=== PATIENT | female | born 1990 | race Two or more races ===

== ENCOUNTER → 2020-04-14 08:16 | Outpatient (BNVA) | payer OTHER, SELFPAY | PROVIDERS: PCP Hospitalist; Referring Provider Hospitalist; Visit Provider Surgery | DX: E66.01 Morbid (severe) obesity due to excess calories (principal); J45.909 Unspecified asthma, uncomplicated; G47.30 Sleep apnea, unspecified; Z68.42 Body mass index [BMI] 45.0-49.9, adult; Z88.6 Allergy status to analgesic agent; Z79.899 Other long term (current) drug therapy | CPT/HCPCS: 99202 ==

== ENCOUNTER 2020-04-21 08:43 | Outpatient (REF) | payer OTHER, SELFPAY ==
--- NOTE | 2020-04-21 09:44 | ECG_ITS ---
Test Reason : UNSPEC ASTHMA, PREOP Blood Pressure : / mmHG Vent. Rate : 071 BPM Atrial Rate : 071 BPM P-R Int : 164 ms QRS Dur : 104 ms QT Int : 396 ms P-R-T Axes : 048 -02 018 degrees QTc Int : 430 ms Normal sinus rhythm with sinus arrhythmia Incomplete right bundle branch block Borderline ECG No previous ECGs available Referred By: Joseph Geiger Electronically Signed By:YVROSE ALMANZA MD
--- NOTE | 2020-04-21 10:12 | XR_ITS ---
EXAMINATION: XR CHEST CLINICAL INFORMATION: Asthma COMPARISON: None TECHNIQUE: 2 views of the chest were obtained. FINDINGS: No significant abnormality is noted involving the heart, lungs, mediastinum, bony thorax or soft tissues. XR/XR chest 2V IMPRESSION: Unremarkable chest examination.
[2020-04-21 10:22] LABS: MANUAL DIFF FLAG NO
[2020-04-21 10:30] LABS: Basophils Absolute Auto 0.1 X10*3/uL (0.0-0.2); Basophils Percent Auto 0.5 % (0-2); Eosinophils Absolute Auto 0.2 X10*3/uL (0.0-0.4); Eosinophils Percent Auto 2.3 % (0-4); Hematocrit 38.5 % (37-47); Hemoglobin 13.1 g/dl (12.0-16.0); Imm Gran Abs Auto 0.04 X10*3/uL (0.00-0.03); Imm Gran Pct Auto 0.4 % (0.0-0.4); Lymphocytes Absolute Auto 3.4 X10*3/uL (1.2-4.9); Lymphocytes Percent Auto 36.4 % (20-40); Mean Corpuscular Hemoglobin 28.9 pg (27.0-33.0); Mean Corpuscular Volume 84.8 fL (80-98); Mean Platelet Volume 9.3 fL (9.4-12.3); Monocytes Absolute Auto 0.5 X10*3/uL (0.1-1.2); Monocytes Percent Auto 5.2 % (2-11); Neutrophils Absolute Auto 5.1 X10*3/uL (2.0-8.3); Neutrophils Percent Auto 55.2 % (45-73); Platelet Count 280 X10*3/uL (160-400); Red Blood Count 4.54 X10*6/uL (4.20-5.50); Red Cell Distribution Width 12.2 % (11.0-16.0); White Blood Count 9.2 X10*3/uL (4.8-10.8)
[2020-04-21 11:09] LABS: Alanine Aminotransferase 29 U/L (0-31); Albumin Level 4.2 g/dL (3.5-5.0); Alkaline Phosphatase 64 U/L (39-117); Anion Gap 12 (12-20); Aspartate Amino Transferase 18 U/L (5-31); Bilirubin Total 0.3 mg/dL (0.0-1.0); Blood Urea Nitrogen 12 mg/dL (9-16); C Reactive Protein 0.35 mg/dL (< or = 0.50); Calcium 8.3 mg/dL (8.4-10.2); Carbon Dioxide 24 mmol/L (22-29); Chloride 106 mmol/L (96-108); Cholesterol 173 mg/dL; Estimated Glomerular Filt Rate > 60; Glucose Random 94 mg/dL (60-115); HDL Cholesterol 39 mg/dL; LDL Cholesterol Calculated 107 mg/dl; Potassium 4.1 mmol/l (3.3-5.1); Sodium 138 mmol/L (135-145); Total Protein 6.8 g/dL (6.5-8.0); Triglycerides 135 mg/dL
[2020-04-21 11:11] LABS: Estimated Average Glucose 97 mg/dL
[2020-04-21 11:33] LABS: Ferritin 105 ng/mL (10-122); TSH reflex Free T4 0.85 mIU/mL (0.32-4.0)
[2020-04-21 11:47] LABS: Vitamin B12 202 pg/mL (200-900)
[2020-04-22 12:01] LABS: H Pylori Breath Test NOT DETECTED (NOT DETECTED)
[2020-04-24 12:17] LABS: Insulin Level Total 37.6 uIU/mL
[2020-04-24 18:32] LABS: Zinc 96 mcg/dL (60-130)
[2020-04-26 18:56] LABS: Vitamin A 44 mcg/dL (38-98)
[2020-04-27 14:41] LABS: Vitamin B1 12 nmol/L (8-30)
== END 2020-04-21 08:44 | disposition home or self-care (01) ==
LOC: HO.LAB 08:43
PROVIDERS: Surgery; PCP Hospitalist; Visit Provider Physician Assistant
DX: Z01.818 Encounter for other preprocedural examination (principal); J45.909 Unspecified asthma, uncomplicated; Z11.0 Encounter for screening for intestinal infectious diseases
CPT/HCPCS: 36415; 71046; 80053; 80061; 82607; 82728; 82746; 83013; 83036; 83525; 84425; 84443; 84590; 84630; 85025; 86140; 93005; 99211

== ENCOUNTER 2020-04-25 08:28 | Outpatient (REF) | payer OTHER, SELFPAY ==
--- NOTE | 2020-04-25 08:32 | FL_ITS ---
EXAMINATION: XR GI SERIES CLINICAL INFORMATION: Preop thereafter surgery COMPARISON: None TECHNIQUE: Upper GI was performed using thin and thick barium and effervescent granules. FINDINGS: Esophageal motility is normal. There is mild gastroesophageal reflux. No hernia is seen. The stomach and duodenum are normal-appearing. No fold thickening, mass, ulcer or stricture is seen. FLUOROSCOPY TIME: 0.7 minutes DOSE AREA PRODUCT: 9.5 beckman per centimeter squared. Total dose 35 mgy. 27 saved fluoroscopic images. FL/FL upper GI series IMPRESSION: Mild gastroesophageal reflux otherwise unremarkable exam.
--- NOTE | 2020-04-25 08:32 | US_ITS ---
EXAMINATION: US COMPLETE ABDOMEN WITH LIVER ELASTOGRAPHY CLINICAL INFORMATION: Fatty liver. Unspecified asthma COMPARISON: None. TECHNIQUE: Real-time imaging of the abdominal viscera. Noninvasive ultrasound liver fibrosis assessment is performed using Kike ElastPQ point quantification shear wave elastography (pSWE) with a 5 MHz transducer. Multiple elastography samples are obtained. FINDINGS: PANCREAS: Normal. The visualized pancreatic head and body are normal in appearance. The remainder of the pancreas is obscured from visualization by the overlying bowel gas. ABDOMINAL AORTA: The proximal, middle, and distal aortic segments are normal in caliber. INFERIOR VENA CAVA: Visualized portions are normal. LIVER: The liver demonstrates normal size and contour. No focal lesion or intrahepatic biliary duct dilatation. The right lobe is prominent to mildly enlarged, measuring 19.2 cm in length. The left lobe measures 12.2 cm in length. Flow in the main portal vein is hepatopetal. There is diffusely increased hepatic echogenicity and sound attenuation consistent with diffuse hepatic steatosis. Shear wave elastography provides a median stiffness of 1.35 m/s (reference: normal median stiffness is 0.81 - 1.22 m/s). The IQR/median stiffness to assess sampling precision is 0.22 (reference: optimal IQR/median stiffness is under 0.3). GALLBLADDER: Echogenic, shadowing gallstones are present. No gallbladder wall thickening or pericholecystic fluid. No reported sonographic Shah's sign. COMMON BILE DUCT: Normal in caliber measuring 0.4 cm in diameter. RIGHT KIDNEY: Normal. No hydronephrosis. No renal calculi or focal parenchymal lesions. The kidney measures 12.3 cm in maximum dimension. LEFT KIDNEY: Normal. No hydronephrosis. No renal calculi or focal parenchymal lesions. The kidney measures 10.7 cm in maximum dimension. SPLEEN: Normal. The spleen measures 10.4 cm in maximum dimension. FREE FLUID: None. US/US abdomen comp w elastography IMPRESSION: 1. Mild diffuse hepatic steatosis. Cholelithiasis. The right lobe of the liver is prominent to mildly enlarged, measuring up to 19.2 cm. 2. Elastography: Liver elastography measurements are consistent with a minimal risk for clinically significant liver fibrosis (METAVIR Stage F0-F1).
== END 2020-04-25 08:29 | disposition home or self-care (01) ==
LOC: HO.US 08:28
PROVIDERS: PCP Hospitalist; Visit Provider Surgery
DX: Z01.818 Encounter for other preprocedural examination (principal); E66.9 Obesity, unspecified; K21.9 Gastro-esophageal reflux disease without esophagitis; J45.909 Unspecified asthma, uncomplicated
CPT/HCPCS: 74240; 76705; 76981

== ENCOUNTER → 2020-04-28 08:20 | Outpatient (BNVA) | payer OTHER, SELFPAY | PROVIDERS: PCP Hospitalist; Referring Provider Hospitalist; Visit Provider Dietitian, Registered | DX: Z76.89 Persons encountering health services in other specified circumstances (principal) ==

== ENCOUNTER → 2020-05-05 07:57 | Outpatient (BNVA) | payer OTHER, SELFPAY | PROVIDERS: PCP Hospitalist; Visit Provider Surgery | DX: Z76.89 Persons encountering health services in other specified circumstances (principal) ==

== ENCOUNTER → 2020-05-15 07:00 | Outpatient (REF) | payer OTHER, SELFPAY ==
--- NOTE | 2020-05-15 07:06 | CA_ITS ---
Transthoracic Echocardiogram Patient (Last, First, Middle): Purnima Swenson J Gender: Female Date of : 1990 Age: 29 Procedure Date: 05/15/2020 Procedure Type: Transthoracic Echocardiogram Location: OP Height: 162.56 cm Weight: 116.58 kg BSA: 2.18 m2 Heart Rate: bpm BP: 128 / 70 mmHg Locomotive Engineer: Referring MD: Joseph Geiger MD Agronomy Manager: Alvaro Sawyer MD Symptoms: I10 HTN, DYSPNEA ON EXERTION,Z01.818 PRE OP Study Quality: Good ECG Rhythm: Sinus Conclusions: - Essentially normal study Findings Left Ventricle Normal left ventricular size, thickness, and systolic function. The visually estimated ejection fraction is between 60-65%. There is no evidence of regional wall motion abnormalities. Diastolic function is normal for age. Right Ventricle Normal right ventricular cavity size and systolic function. Atria Both atria are normal in size. There is an interatrial septal aneurysm seen bowing to the right. There is a mobile atrial septum noted. Interatrial shunt cannot be excluded. Aortic Valve Normal aortic valve structure and function. There is no aortic valve stenosis. There is no aortic valve regurgitation. Mitral Valve Normal mitral valve structure and function. There is trace mitral valve regurgitation. There is no mitral valve stenosis. Pulmonic Valve The pulmonic valve is likely normal. There is trace pulmonic valve regurgitation. Tricuspid Valve Normal tricuspid valve structure. There is trace tricuspid valve regurgitation. The right ventricular systolic pressure is normal. The right ventricular systolic pressure is 20 mmHg. Normal right atrial pressure. There is no evidence of pulmonary hypertension. Great Vessels All visible segments of the aorta are normal in size. The pulmonary artery was not well visualized. Venous The inferior vena cava is normal in size and collapses greater than 50% with inspiration. Pericardium/Pleural There is no evidence of pericardial effusion. Prior Study Comparison No prior study available for comparison. Recommendations, Care & Conclusions Recommend contrast study to evaluate intracardiac shunting. Measurements 2D Linear Measurements IVSd: 0.99 0.6-0.9/0.6-1.0 cm LVIDd: 4.65 3.9-5.3/4.2-5.9 cm LVIDd Index: 2.13 2.4-3.2/2.2-3.1 cm/m2 LVIDs: 2.74 2.0-3.6 cm LVPWd: 0.97 0.7-1.1 cm Ao Root: 3.00 2.1-3.5 cm LA Diam: 4.10 2.7-3.8/3.0-4.0 cm LAIDs Index: 1.88 1.5-2.3 cm/m2 LV Mass: 195.65 67-162/88-224 g LV Mass Index: 89.75 43-95/49-115 g/m2 LVOT Diam: 2.00 3.0+(-)1.3 cm 2D Systolic Function EF 4C: 60.70 >55% EF 2C: 54.40 >55% EF BiP: 59.80 >55% Mitral Valve MV Pk E: 0.76 MV PK A: 0.60 MV Decel Time: 144.00 E/A: 1.30 E'Lateral: 12.10 E'Medial: 10.20 E/E' Med: 7.50 E/E' Lat: 6.30 PHT: 42.00 MVA PHT: 5.24 Decel Florence: 5.28 Aortic Valve AoV Pk Favian: 1.32 AoV Mn Favian: 0.90 AoV VTI: 0.32 AoV Pk Grad: 7.00 Aov Mn Grad: 4.00 SWATI Cont.VTI: 2.28 LVOT LVOT Pk Favian: 1.09 LVOT Mn Favian: 0.72 LVOT VTI: 0.23 LVOT Pk Grad: 5.00 LVOT Mn Grad: 2.00 LVOT Diam: 2.00 LVOT Area: 3.14 Diastolic Function MV Pk E: 0.76 MV Pk A: 0.60 E/A: 1.30 E'Medial: 10.20 E/E' Med: 7.50 E' Laterial: 12.10 E/E' Lat: 6.30 Tricuspid Valve TR Pk Favian: 2.09 TR Pk Grad: 17.00 RA Press: 3.00 RVSP: 20.00 Great Vessels Aorta Ao Root-2D: 3.00 2.0-3.7 cm Ao Asc: 2.80 2.1-3.4 cm Pulmonary Valve PV Pk Favian: 1.00 Peak PV Grad: 4.00 Updated in Other Vendor System with Status of Final Alvaro Sawyer MD electronically signed on 05/16/2020 5:52:20 PM with status of Final
== END ==
LOC: HO.CARD 07:00
PROVIDERS: Visit Provider Surgery
DX: Z01.818 Encounter for other preprocedural examination (principal); I10 Essential (primary) hypertension
CPT/HCPCS: 93306

== ENCOUNTER → 2020-05-19 08:02 | Outpatient (BNVA) | payer OTHER, SELFPAY | PROVIDERS: PCP Hospitalist; Referring Provider Hospitalist; Visit Provider Dietitian, Registered | DX: Z76.89 Persons encountering health services in other specified circumstances (principal) ==

== ENCOUNTER → 2020-05-24 08:13 | Outpatient (BNVA) | payer OTHER, SELFPAY | PROVIDERS: Visit Provider Dietitian, Registered | DX: Z76.89 Persons encountering health services in other specified circumstances (principal) ==

== ENCOUNTER → 2020-05-31 07:53 | Outpatient (BNVA) | payer OTHER, SELFPAY | PROVIDERS: Visit Provider Surgery | DX: Z76.89 Persons encountering health services in other specified circumstances (principal) ==

== ENCOUNTER → 2020-06-28 08:20 | Outpatient (BNVA) | payer OTHER, SELFPAY | PROVIDERS: Visit Provider Surgery | DX: Z76.89 Persons encountering health services in other specified circumstances (principal) ==

== ENCOUNTER → 2020-07-21 08:15 | Outpatient (BNVA) | payer OTHER, SELFPAY | PROVIDERS: Visit Provider Surgery ==

== ENCOUNTER → 2020-08-21 16:12 | Outpatient (BNVA) | payer OTHER, SELFPAY | PROVIDERS: PCP Hospitalist; Visit Provider Physician Assistant ==

== ENCOUNTER → 2020-08-25 13:48 | Outpatient (BNVA) | payer OTHER, SELFPAY | PROVIDERS: PCP Hospitalist; Visit Provider Physician Assistant ==

== ENCOUNTER → 2020-08-28 08:34 | Outpatient (BNVA) | payer OTHER, SELFPAY | PROVIDERS: PCP Hospitalist; Visit Provider Surgery ==

== ENCOUNTER 2020-09-05 05:44 | Inpatient (IN) | payer OTHER, SELFPAY ==
[2020-08-30 11:45] VITALS: BMI 41.3
[2020-08-31 08:43] LABS: MANUAL DIFF FLAG NO
[2020-08-31 09:05] LABS: Basophils Percent Auto 0.5 % (0-2); Eosinophils Absolute Auto 0.1 X10*3/uL (0.0-0.4); Eosinophils Percent Auto 1.7 % (0-4); Hematocrit 40.1 % (37-47); Hemoglobin 13.6 g/dl (12.0-16.0); Imm Gran Abs Auto 0.02 X10*3/uL (0.00-0.03); Imm Gran Pct Auto 0.3 % (0.0-0.4); Lymphocytes Absolute Auto 2.8 X10*3/uL (1.2-4.9); Lymphocytes Percent Auto 35.9 % (20-40); Mean Corpuscular HGB Conc 33.9 g/dl (31.0-35.0); Mean Corpuscular Hemoglobin 28.5 pg (27.0-33.0); Mean Corpuscular Volume 83.9 fL (80-98); Mean Platelet Volume 10.1 fL (9.4-12.3); Monocytes Absolute Auto 0.5 X10*3/uL (0.1-1.2); Monocytes Percent Auto 6.2 % (2-11); Neutrophils Absolute Auto 4.3 X10*3/uL (2.0-8.3); Neutrophils Percent Auto 55.4 % (45-73); Platelet Count 257 X10*3/uL (160-400); Red Blood Count 4.78 X10*6/uL (4.20-5.50); Red Cell Distribution Width 12.2 % (11.0-16.0); White Blood Count 7.8 X10*3/uL (4.8-10.8)
[2020-08-31 09:12] LABS: INTERNATIONAL NORM RATIO 1.1 (0.9-1.1); Prothrombin Time 12.9 SEC (10.8-13.0)
[2020-08-31 09:24] LABS: Estimated Average Glucose 91 mg/dL; Hemoglobin A1c % 4.8 %
[2020-08-31 09:51] LABS: Alanine Aminotransferase 29 U/L (0-31); Albumin Level 4.3 g/dL (3.5-5.0); Alkaline Phosphatase 55 U/L (39-117); Anion Gap 11 (12-20); Aspartate Amino Transferase 23 U/L (5-31); Bilirubin Total 0.8 mg/dL (0.0-1.0); Blood Urea Nitrogen 12 mg/dL (9-16); C Reactive Protein 0.12 mg/dL (< or = 0.50); Calcium 8.8 mg/dL (8.4-10.2); Carbon Dioxide 25 mmol/L (22-29); Chloride 106 mmol/L (96-108); Cholesterol 151 mg/dL; Estimated Glomerular Filt Rate > 60; Glucose Random 93 mg/dL (60-115); HDL Cholesterol 33 mg/dL; LDL Cholesterol Calculated 96 mg/dl; Potassium 3.9 mmol/L (3.3-5.1); Sodium 138 mmol/L (135-145); Total Protein 6.9 g/dL (6.5-8.0); Triglycerides 113 mg/dL
[2020-08-31 10:15] LABS: TSH reflex Free T4 0.92 uIU/mL (0.32-4.0)
--- NOTE | 2020-09-04 09:09 | HO.ANESPROP2 ---
Documented by User: Lucila Robles 09/04/20 09:10 HPI - Anesthesia Eval Consult details Narrative: 29yo F for Gastrectomy Sleeve PMFSH Active Problems Active Problems: All Active Problems (Updated 08/30/20 @ 11:39 by Angelina Schmidt) Encounter for pre-operative examination (Acute) Abnormal EKG (Acute) Constipation (Acute) GERD (gastroesophageal reflux disease) (Acute) Anxiety (Acute) Depression (Acute) Asthma (Acute) Sleep apnea (Acute) Morbid obesity (Acute) Past Medical History Medical History Anxiety Asthma Depression GERD (gastroesophageal reflux disease) Knee pain Morbid obesity JEAN-PAUL on CPAP Sleep apnea Family History Family History Mother Hypertension Father No problems noted. Brother No problems noted. Brother No problems noted. Brother No problems noted. Sister No problems noted. Surgical History Surgical History Hx of breast reduction, elective Social History Social History Are you a primary child care giver to a significant other at home: No Do you presently have visiting nurse or other home services: No Alcohol intake: former Smoking Status: Never smoker Use of substances other than those prescribed or required for medical reasons: No Have you been hit, kicked, punched, or otherwise hurt by someone within the past year? If so, by whom?: No Advance Directives: No Advance Directives Information Provided: No Advance Directives on File: No Recently lost weight without trying: No Meds Allergies Allergy/AdvReac Type Severity Reaction Status Date / Time oxycodone [From Percocet] Allergy Severe Anaphylaxis Verified 08/30/20 11:40 Home Medications Medication Instructions Recorded Confirmed Last Taken Type albuterol sulfate 90 mcg/actuation 2 puff INHALATION Q6H PRN 04/14/20 08/30/20 Unknown History aerosol inhaler sertraline 25 mg tablet 25 mg PO DAILY 04/14/20 08/30/20 08/29/20 History Exam Exam Date and Time: September 04, 2020 0909 Height,Weight and Vital Signs: Height 5 ft 4 in Weight 109.316 kg Pertinent Lab Results Pertinent Lab Results: Laboratory Tests 08/31/20 08/31/20 08/31/20 08:05 08:05 08:05 WBC 7.8 RBC 4.78 Hgb 13.6 Hct 40.1 MCV 83.9 MCH 28.5 MCHC 33.9 RDW 12.2 Plt Count 257 MPV 10.1 Immature Gran % (Auto) 0.3 Neut % (Auto) 55.4 Lymph % (Auto) 35.9 Hopkins % (Auto) 6.2 Eos % (Auto) 1.7 Baso % (Auto) 0.5 Lymph # (Auto) 2.8 Hopkins # (Auto) 0.5 Eos # (Auto) 0.1 Baso # (Auto) 0.0 Abs Immat Gran (auto) 0.02 Absolute Neuts (auto) 4.3 Absolute Nucleated RBC 0.000 Nucleated RBC % (auto) 0.0 PT 12.9 INR 1.1 APTT 39.0 H Sodium 138 Potassium 3.9 Chloride 106 Carbon Dioxide 25 Anion Gap 11 L BUN 12 Creatinine 0.66 Estim Creat Clear Calc 152.0 Estimated GFR > 60 Random Glucose 93 Estimat Average Glucose Hemoglobin A1c % Calcium 8.8 D Total Bilirubin 0.8 AST 23 ALT 29 Alkaline Phosphatase 55 C-Reactive Protein 0.12 Total Protein 6.9 Albumin 4.3 Triglycerides 113 Cholesterol 151 LDL Cholesterol, Calc 96 HDL Cholesterol 33 TSH 0.92 Blood Type Antibody Screen 08/31/20 08/31/20 08:05 08:05 WBC RBC Hgb Hct MCV MCH MCHC RDW Plt Count MPV Immature Gran % (Auto) Neut % (Auto) Lymph % (Auto) Hopkins % (Auto) Eos % (Auto) Baso % (Auto) Lymph # (Auto) Hopkins # (Auto) Eos # (Auto) Baso # (Auto) Abs Immat Gran (auto) Absolute Neuts (auto) Absolute Nucleated RBC Nucleated RBC % (auto) PT INR APTT Sodium Potassium Chloride Carbon Dioxide Anion Gap BUN Creatinine Estim Creat Clear Calc Estimated GFR Random Glucose Estimat Average Glucose 91 Hemoglobin A1c % 4.8 Calcium Total Bilirubin AST ALT Alkaline Phosphatase C-Reactive Protein Total Protein Albumin Triglycerides Cholesterol LDL Cholesterol, Calc HDL Cholesterol TSH Blood Type O Positive Antibody Screen NEGATIVE Narrative Narrative: EKG 04/2020 Normal sinus rhythm with sinus arrhythmia Incomplete right bundle branch block Borderline ECG No previous ECGs available Echo 04/2020 Conclusions: - Essentially normal study Assessment and Plan Assessment Anesthesia Assessment: Chart Reviewed Documented by User: Silver Dickerson 09/05/20 07:03 PMFSH Past Medical History Medical History Anxiety Asthma Depression GERD (gastroesophageal reflux disease) Knee pain Morbid obesity JEAN-PAUL on CPAP Sleep apnea Family History Family History Mother Hypertension Father No problems noted. Brother No problems noted. Brother No problems noted. Brother No problems noted. Sister No problems noted. Surgical History Surgical History Hx of breast reduction, elective Social History Social History Are you a primary child care giver to a significant other at home: No Do you presently have visiting nurse or other home services: No Alcohol intake: former Smoking Status: Never smoker Use of substances other than those prescribed or required for medical reasons: No Have you been hit, kicked, punched, or otherwise hurt by someone within the past year? If so, by whom?: No Advance Directives: No Advance Directives Information Provided: No Advance Directives on File: No Recently lost weight without trying: No Meds Allergies Allergy/AdvReac Type Severity Reaction Status Date / Time oxycodone [From Percocet] Allergy Severe Anaphylaxis Verified 08/30/20 11:40 Home Medications Medication Instructions Recorded Confirmed Last Taken Type albuterol sulfate 90 mcg/actuation 2 puff INHALATION Q6H PRN 04/14/20 08/30/20 Unknown History aerosol inhaler sertraline 25 mg tablet 25 mg PO DAILY 04/14/20 08/30/20 08/29/20 History Exam Airway Mallampati Class: III TM Dist: >3cm Neck ROM: Full Loose/Missing/Broken Teeth: No Heart: rrr+[id number] Lungs: cta b/l Assessment and Plan Assessment Anesthesia Assessment: Anesthesia Plan Discussed, PAT Visit and Chart Reviewed Final Anesthetic Review NPO: Yes ASA Class: II Final Preanesthetic Review: No Changes in Pt Med Stat, Meds/Allgs Chart Reviewed, Consent Obtained/Reviewed and Anes Risks/Benef Reviewed Patient Risk: Intermediate Procedure Risk: Low Assessment/Block/Sedation in SS: Assess/Block/Sedation-SS Anesthetic Plan Anesthetic Plan: GA and Agree w/ Assess. and Plan Disposition: Standard PACU
--- NOTE | 2020-09-04 19:22 | MHC.SHP ---
Pre-Procedural Eval Section A The patient is an INPATIENT: Yes The History & Physical has been completed within 30 days and I have reviewed it.: No Section B Chief Complaint: obesity Details of Present Illness: Morbid obesity and cholelithiasis Relevant Family History (Specify if Yes): No Relevant Social History: None Present Medications: None Medical History: No relevant PMH History of Previous Operations: No relevant previous surgery Allergies: Allergies Allergy/AdvReac Type Severity Reaction Status Date / Time oxycodone [From Percocet] Allergy Severe Anaphylaxis Verified 08/30/20 11:40 Review of Systems Sugical H&P ROS: Negative: Constitution, Cardiovascular, Respiratory, Neurological, Psychiatric, Hem-Onc, Allergic/Immunologic, Gastrointestinal, Genitourinary, Musculoskeletal, Integumentary, Endocrine and Eyes/Ears/Nose/Throat Exam Surgical H&P Exam: Normal: HEENT, Normal: Heart, Normal: Lungs, Normal: Extremities, Normal: Abdomen, Normal: Skin and Normal: Neurological Plan Diagnosis/Plan: Unchanged (A cholecystectomy will be performed for symptomatic cholelithiasis) I have reviewed the history and physical and performed a pertinent physical examination on my patient. No changes have occurred unless specified.
[2020-09-04 21:42] LABS: Insulin Level Total 13.9 uIU/mL
[2020-09-05] VITALS (14 sets, daily range): BP systolic 106–166; BP diastolic 64–97; PULSE 83–98; RESP 14–18; TEMP 36.2–37.2; O2SAT 94–98
[2020-09-05 06:36] LABS: COVID-19 Test Negative (Negative); IDNOW Serial# 9DD0AD1C
[2020-09-05 06:37] LABS: Urine Pregnancy NEGATIVE (NEGATIVE)
[2020-09-05 06:38] LABS: UPreg QC Valid YES
[2020-09-05] MEDS: Lactated Ringers 1,000 ML 100 ML IVCONT (07:08)
[2020-09-05] MEDS: Lactated Ringers 1,000 ML 999 ML IV (07:08)
--- NOTE | 2020-09-05 10:53 | P.BOP_ITS ---
Brief Operative Note Date of Service: 09/05/20 Pre-op diagnosis: Morbid obesity, cholilithiasis, biliary colic and other comorbidities (see below) Post-op diagnosis: same Procedure: INITIAL PATIENT BMI ON PRESENTATION AT OUR OFFICE: 45.3 kg/m2 LAST BMI BEFORE SURGERY: 41.4 kg/m2 COMORBIDITIES: symptomatic cholelithiasis, sleep apnea, asthma, depression, anxiety, GERD liver steatosis, RBBB The patient participated in an intensive weekly lifestyle intervention and exercise program during which the patient has lost between the initial office visit and the last preoperative visit 24.6 lbs, or 10.2% of initial actual body weight. The patient met the BMI-criteria for bariatric surgery based on the BMI on initial presentation. The patient should not be penalized for achieving such weight loss because it is not sustainable long-term without surgical intervention and it was achieved in preparation for bariatric surgery under my direction and based on my published research ([email or web address] and [email or web address]/pdf) that a 10% preoperative weight loss improves long-term weight loss after surgery and reduces perioperative complications. Insurance carriers such as [facility] have endorsed my recommendations and have included in their policies criteria to include a 10% preoperative weight loss requirement. During the preoperative workup, the patient was found to have cholelithiasis which appears to be symptomatic. I recommended cholecystectomy in conjunction with the sleeve gastrectomy. Risks and complications of the surgery were discussed with the patient in advance, particularly the postoperative bleeding, infection, DVT or PE, bile leak, major bile duct injury that may require additional surgical intervention, cardiac, pulmonary or renal complications among others. The patient understood the risks and was in agreement with the plan. PROCEDURE: Esophago-gastroscopy, laparoscopic cholecystectomy, laparoscopic lysis of adhesions, laparoscopic sleeve gastrectomy and laparoscopic gastropexy INDICATIONS: This is a 29 year-old female who was electively scheduled for laparoscopic, possibly open sleeve gastrectomy. The risks and complications of the procedure were discussed with the patient in advance, particularly the possibility of ; pulmonary embolism; staple line leak; bleeding; GERD; cardiac, pulmonary, or renal complications; as well as long-term problems such as insufficient weight loss, vitamin deficiency, strictures, or ulcers. The patient understood all the risks, and was in agreement to proceed with surgery. DESCRIPTION OF PROCEDURE: After informed consent was obtained from the patient, the patient was given preoperative antibiotics, and was transferred to the operating room. After successful induction of general anesthesia, pneumatic compressive devices were placed on both lower extremities. An upper endoscopy was performed next. The oropharynx and esophagus appeared to be within normal limits. There was a diaphragmatic hernia present of moderate size consistent with the findings of the preoperative upper GI. The stomach was entered. Then after all fluid and air were suctioned and the stomach was fully decompressed, the scope was withdrawn and secured in the mid esophagus. The patient was then prepped and draped in the usual sterile manner, and abdominal access was established at the right upper quadrant with the Elliott technique. A 12 mm blunt port was inserted, and the abdomen was insufflated with CO2 to a pressure of 15 mmHg. Under direct visualization, additional ports were placed, specifically two 5 mm Versi-step ports to the left upper quadrant, and a 5 mm Versi-Step port to the right upper quadrant. 1% lidocaine plan was used to infiltrate all port sites as well as all fascia defects. An additional two 5 mm Versi-step ports were required for the cholecystectomy at the right upper quadrant. An additional 5 mm port was placed to the right flank for the Mediflex retractor that was used to retract the left lobe of the liver as well as the retraction of the gallbladder. At that point the patient was placed in a steep reverse Trendelenburg position tilted to the left side. The gallbladder was retracted cephalad and laterally. There were extensive adhesions between the omentum and the gallbladder wall that were taken down with the cautery. The peritoneal attachments of the gallbladder at the triangle of Calot posteriorly and anteriorly were taken down. The cystic duct and artery were both seen. They were completely dissected free, skeletonized all the way to the infundibulum of the gallbladder . In a similar fashion we also cleaned the liver bed just behind the cystic artery to make sure there was no additional structures in this area. Once we confirmed that both structures were entering into the gallbladder and there were no other structures in the area, they were both clipped with two clips proximally, one distally and were cut in-between. We then using the electrocautery we slowly took down the gallbladder from the liver bed. Small areas of bleeding from the liver parenchyma were controlled with the cautery. After the gallbladder was completely detached from the liver bed, it was placed in an EndoCatch bag and was removed without difficulty from the xiphoid port. I then inspected the clips at the cystic duct and artery and were both in place. There was no active bleeding from the liver bed. Using the EndoClose type suture passer device, I placed a #1 Polysorb tie across the falciform ligament in order to retract it up against the abdominal wall and prevent injury of the ligament with our instruments during the sleeve gastrectomy. The gastro-esophageal fat pad was opened with the ultrasonic device (Thunderbeat, Olympus) and the anterior esophagus and hiatus were exposed. The angle of His was opened with the ultrasonic device the fundus of the stomach from any diaphragmatic and splenic attachments. I then opened the gastrocolic ligament between the transverse colon and the greater curvature of the stomach with the ultrasonic device to enter the lesser sac and facilitate the ligation of the short gastric vessels. I started at a mid-point along the greater curvature and using the Thunderbeat, all short gastric vessels were divided all the way to the angle of His until the left yanira was completely dissected at its entirety. I then divided the gastro-colic ligament distally to a distance of about 3-4 cm proximal to the esophagus. The stomach was then divided transversely with one Endo DEON-45 purple and four DEON-60 articulating purple loads using the TwtBks stapler and loads. Every effort was made that the gastric sleeve had a tubular shape and an even caliber throughout. Once the sleeve resection was completed, the staple line of the gastric sleeve was reinforced with Hemoclips. The resected stomach was retrieved without difficulty from the Elliott port. A gastropexy was then performed in order to prevent postoperative GERD and partial gastric volvulus. Several interrupted 2.0 Surgidac sutures were placed between the sleeve's staple line and the previously divided greater omentum and gastro-colic ligament using the Endo-Stitch device. An upper endoscopy was performed. There was no narrowing at the GE junction. The scope was easily advanced all the way to the pylorus which was clearly visualized. There was no narrowing anywhere and the sleeve's caliber was even throughout. The sleeve's staple line was inspected and there was no evidence of ischemia, bleeding or dehiscence. At that point the gastroscope was withdrawn from the patient?s mouth while we were decompressing the bowel and the stomach from any remaining air. I looked into the lesser sac to see how the sleeve was situating and it was situating well. There was no bleeding from the staple line, spleen, or short gastric vessels. The Mediflex retractor was removed, and the undersurface of the liver was inspected and there was no bleeding. The patient was placed in supine position. I closed the fascial defect of the 12 mm port site with a figure of eight #1 Polysorb suture. Then 100 cc 0.25 % Marcaine plain with 10 mg of Dexamethasone were used to infiltrate the fascial closure as well as all skin incisions. At this point, the abdomen was deflated, all ports were removed under direct vision, and no bleeding was noted from any of the port sites. The skin incisions were irrigated with saline and were closed with 4-0 absorbable monofilament sutures. Steri-Strips and OpSites were used to cover all incisions. The patient was extubated and was transferred in stable condition to the recovery room for further care. I was present and performed all maynard parts of the procedure. Ms. Harvey was the first responder. There were no residents to assist with this case. Fermin Geiger MD, PhD, FACS Surgeon: Joseph Geiger MD Anesthesia: GETA, local and other (TAP block) Firearms Inspector: Inge Harvey Estimated blood loss (mL): 10 IV fluids (mL): 2,500 Urine output (mL): 0 Pathology: other (1) stomach, 2) gallbladder) Condition: stable Disposition: PACU
--- NOTE | 2020-09-05 10:53 | PM.DS ---
DS: Providers Provider Date of Service: 09/06/20 Date of admission: 09/05/20 05:44 Primary care physician: Randy Rodrigues MD DS: Medications Discharge Medications Home Medications: Home Medications Medication Instructions Recorded Confirmed albuterol sulfate 90 mcg/actuation 2 puff INHALATION Q6H PRN 04/14/20 08/30/20 aerosol inhaler sertraline 25 mg tablet 25 mg PO DAILY 04/14/20 08/30/20 Previous Rx's Medication Instructions Recorded mecobalamin (vitamin B12) 1,000 1,000 mcg SUBLINGUAL DAILY #30 tab 05/02/20 mcg disintegrating tablet,sublingual docusate sodium 100 mg capsule 100 mg PO DAILY #30 cap 07/21/20 ondansetron HCl 4 mg tablet 4 mg PO Q12H #20 tab 08/28/20 pantoprazole 40 mg tablet,delayed 40 mg PO DAILY #30 tab 08/28/20 release polyethylene glycol 3350 17 gram 17 g PO DAILY #14 ea 08/28/20 oral powder packet sucralfate 100 mg/mL oral 10 ml PO BID #400 ml 08/28/20 suspension DS: Summary Time Spent with Patient Time attestation: Total time spent providing and/or coordinating discharge services: 15 ADMITTING DIAGNOSIS: morbid obesity, cholelithiasis, anxiety/depression, asthma, GERD, JEAN-PAUL DISCHARGE DIAGNOSIS: same, s/p laparoscopic sleeve gastrectomy and cholecystectomy PAST SURGICAL HISTORY: breast reduction PROCEDURE: upper endoscopy, laparoscopic sleeve gastrectomy and cholecystectomy DISCHARGE SUMMARY: History of Present Illness: The patient is a 29 year-old woman with a BMI of 44.6 kg/m2 and associated co-morbidities as described above. The patient had extensive work-up,lost 22.6 lbs preoperatively and was electively scheduled for laparoscopic, possible open sleeve gastrectomy and gastropexy. Risks and complications of the surgery were discussed with the patient in advance, particularly the possibility of , pulmonary embolism, anastomotic leak, bleeding, bowel injury, GERD, cardiac, renal or pulmonary complications. The patient understood all the risks and was in agreement with the surgical plan. Hospital Course: The patient underwent an uneventful laparoscopic sleeve gastrectomy with gastropexy and cholecystectomy on the day of admission. Postoperatively, the patient was transferred to the surgical floor. The patient was on IV Acetaminophen and IV dilaudid for pain control. Patient was started on bariatric phase 1 diet POD #0. On postoperative day one, the patient was feeling well without nausea, vomiting, fevers, or tachycardia. The patient had some mild incisional pain. The abdomen was soft. On the morning of postoperative day one, the patient was continued on 1 ounce of water or ice every half hour. During the first day, the patient did fairly well, having some incisional pain, but able to ambulate adequately and to tolerate liquids well. Since the patient is doing well, we decided that the patient was ready to be discharged. The patient was given instructions to follow-up with me next week and to call my office for any fever over 101, persistent abdominal pain, nausea, vomiting, GERD, symptoms of DVT such as calf tenderness, or leg swelling, or pulmonary embolism such as chest pain or shortness of breath. The patient was also instructed to drink 40-60 ounces of liquids per day using the 1-ounce cups. The patient was given prescription for Tylenol for pain, Zofran prn for nausea, and pantoprazole and carafate. The patient was encouraged to ambulate and use the incentive spirometer. The patient was allowed to shower, but no baths, and encouraged to stay active at home. All of these instructions were given to the patient personally. All questions were answered and the patient understood all instructions, the instructions were also given to the patient in print. Discharge coordination time: Less than 30 minutes Physical Exam Vital Signs: Vital Signs: Last Vital Signs Temp 97.3 F 09/05/20 10:49 Pulse 98 09/05/20 10:49 Resp 16 09/05/20 10:49 BP 121/64 09/05/20 10:49 Pulse Ox 98 09/05/20 10:49 Body Mass Index 41.3 DS: Data Data Completed and Pending Pending studies at discharge: Pending at discharge 09/05/20 09:12 Surgical [PTH] Routine Labs on day of discharge: Laboratory Results - last 24 hr 08/31/20 09/05/20 09/05/20 08:05 06:00 06:00 Total Insulin 13.9 Urine Test NEGATIVE COVID-19 ([facility]) Negative COVID-19 Clin Com See Note Discharge Plan Discharge Anticipated Discharge Date/Time: 09/06/20 10:50 Patient Disposition: Home, Self-Care Referrals: Randy Rodrigues MD [Primary Care Provider] - Discharge Medications: Continued sertraline 25 mg tablet 25 mg PO DAILY RF: 0 albuterol sulfate 90 mcg/actuation HFA aerosol inhaler 2 puff inhalation Q6H PRN (Reason: Wheezing) RF: 0 docusate sodium [Colace] 100 mg capsule 100 mg PO DAILY Qty: 30 RF: 2 pantoprazole 40 mg tablet,delayed release (DR/EC) 40 mg PO DAILY Qty: 30 RF: 2 sucralfate 100 mg/mL suspension 10 ml PO BID Qty: 400 RF: 2 ondansetron HCl [Zofran] 4 mg tablet 4 mg PO Q12H Qty: 20 RF: 0 Discontinued mecobalamin (vitamin B12) 1,000 mcg tablet,disintegrating 1,000 mcg sublingual DAILY Qty: 30 RF: 5 polyethylene glycol 3350 [Miralax] 17 gram powder in packet 17 g PO DAILY Qty: 14 RF: 0 Discharge Orders: Discharge Order (Routine); Ordered 09/06/20 Ordered By: Joseph Geiger Diet: other Activity on Discharge: No heavy lifting Stand Alone Forms: Patient Portal Discharge page Activity Restrictions/Additional Instructions: No tub baths, sex or returning to work until discussed at first post op appointment. No exercise, alcohol, tobacco or illegal drug use. Continue to use incentive spirometer hourly while awake. Walk in home for 5- 10 minutes every 2 hours during the first week. Continue phase 1 diet today and start phase 2 diet tomorrow morning. Follow all instructions in the bariatric handbook and call with any questions. Care Plan Goals: weight loss Health Concerns: morbid obesity, gall stones Plan of Treatment: see discharge instructions Discharge Date/Time: 09/06/20 10:12
--- NOTE | 2020-09-05 11:04 | PM.PNGS ---
Subjective Subjective Date of Service: 09/06/20 Interval history: Patient had mild incisional pain but was able to ambulate and use the incentive spiromteter. Is tolerating phase 1 bariatric diet. Physical Exam Vital Signs: Vital Signs: Last Vital Signs Temp 97.3 F 09/05/20 10:46 Pulse 91 09/05/20 10:57 Resp 16 09/05/20 10:57 BP 131/83 09/05/20 10:57 Pulse Ox 95 09/05/20 10:57 Body Mass Index 41.3 GI: Inspection: Yes normal to inspection, Yes incision (dry, clean and intact) and Yes obesity Extrem: Right lower extremity: normal to inspection (no calf tenderness) Left lower extremity: normal to inspection (no calf tenderness) Progress Note: A&P Assessment and plan (1) Morbid obesity: Status: Acute (2) Sleep apnea: Status: Acute (3) Asthma: Status: Acute (4) Depression: Status: Acute (5) Anxiety: Status: Acute (6) GERD (gastroesophageal reflux disease): Status: Acute (7) Status post laparoscopic cholecystectomy: Status: Acute (8) S/P laparoscopic sleeve gastrectomy: Status: Acute Assessment and Plan: 29 year old Female was admitted 09/05/2020 with morbid obesity and comorbidities. Problem 1: s/p laparoscopic sleeve gastrectomy, cholecyctectomy, gastropexy and lysis of adhesions Status: Doing well Plan: Check am labs, If OK, will begin phase 1 bariatric diet. (9) Cholelithiasis: Status: Acute (10) Steatosis, liver: Status: Acute (11) Right bundle branch block: Status: Acute Fall Risk Details Current Medications: Current Medications Generic Name Dose Route Start Last Admin Trade Name Freq PRN Reason Stop Dose Admin Albuterol Sulfate 2.5 mg 09/05/20 06:09 Albuterol Sulfate (0.083%) 2.5 Mg/3 Ml Vial.Neb INHALE ONCE PRN Shortness of Breath/Wheezing Fentanyl 50 mcg 09/05/20 07:01 Fentanyl Citrate/Pf 100 Mcg/2 Ml Vial IVPUSH Q5M PRN Pain, Moderate (Pain Scale 4-6 Hydromorphone HCl 0.5 mg 09/05/20 07:01 Hydromorphone Hcl 0.5 Mg/0.5 Ml Syringe IVPUSH Q5M PRN Pain, Severe (Pain Scale 7-10) Lactated Ringer's 1,000 mls @ 100 mls/hr 09/05/20 06:15 09/05/20 07:08 Lr IVCONT 100 mls/hr .Q10H CHAZ Administration Promethazine HCl 12.5 mg/ 50.5 mls @ 202 mls/hr 09/05/20 07:01 Sodium Chloride IV ONCE PRN Nausea and Vomiting Ondansetron HCl 4 mg 09/05/20 07:01 Ondansetron Hcl 4 Mg/2 Ml Vial IVPUSH ONCE PRN Nausea and Vomiting Time Spent With Patient Time: Total time spent is greater than 50% in coordination of care (as documented) at patient's floor/unit and/or counseling patient: Time with patient: less than 15 minutes
[2020-09-05] MEDS: Famotidine/PF 20 MG/2 ML VIAL IVPUSH ×2 (12:40→20:38)
[2020-09-05] MEDS: Lactated Ringers 1,000 ML 125 ML IVCONT ×2 (12:43→20:37)
[2020-09-05 13:13] LABS: Hematocrit 41.1 % (37-47); Hemoglobin 13.5 g/dl (12.0-16.0)
[2020-09-05 13:32] LABS: Anion Gap 20 (12-20); Blood Urea Nitrogen 8 mg/dL (9-16); Calcium 8.6 mg/dL (8.4-10.2); Carbon Dioxide 21 mmol/L (22-29); Chloride 104 mmol/L (96-108); Creatinine Clr Calc Pharmacy 143.2; Estimated Glomerular Filt Rate > 60; Glucose Random 119 mg/dL (60-115); Potassium 3.8 mmol/L (3.3-5.1); Sodium 141 mmol/L (135-145)
[2020-09-05] MEDS: ceFAZolin Sodium/Dextrose,Iso 2 GM/50 ML PIGGYBACK IV (14:00)
[2020-09-05] MEDS: Metoclopramide HCl 10 MG/2 ML VIAL IVPUSH (16:43)
[2020-09-05] MEDS: 0.9 % Sodium Chloride Flush 3 ML SYRINGE IVFLUSH (20:38)
[2020-09-05] MEDS: ondansetron HCL 4 MG/2 ML VIAL IVPUSH (20:38)
[2020-09-06 00:01] VITALS: BP 120/67; PULSE 93
[2020-09-06 03:26] VITALS: BP 143/86; PULSE 90; RESP 18; TEMP 36.5; O2SAT 95
[2020-09-06] MEDS: Metoprolol Tartrate 5 MG/5 ML VIAL IVPUSH (03:35)
[2020-09-06] MEDS: Lactated Ringers 1,000 ML 125 ML IVCONT (04:34)
[2020-09-06] MEDS: ondansetron HCL 4 MG/2 ML VIAL IVPUSH (04:34)
[2020-09-06 04:37] VITALS: BP 116/72; PULSE 88
[2020-09-06 05:02] LABS: MANUAL DIFF FLAG NO
[2020-09-06 05:13] LABS: Basophils Percent Auto 0.1 % (0-2); Hematocrit 35.9 % (37-47); Hemoglobin 12.3 g/dl (12.0-16.0); Imm Gran Abs Auto 0.06 X10*3/uL (0.00-0.03); Imm Gran Pct Auto 0.5 % (0.0-0.4); Lymphocytes Absolute Auto 1.5 X10*3/uL (1.2-4.9); Lymphocytes Percent Auto 12.1 % (20-40); Mean Corpuscular HGB Conc 34.3 g/dl (31.0-35.0); Mean Corpuscular Hemoglobin 28.8 pg (27.0-33.0); Mean Corpuscular Volume 84.1 fL (80-98); Mean Platelet Volume 9.6 fL (9.4-12.3); Monocytes Absolute Auto 0.8 X10*3/uL (0.1-1.2); Monocytes Percent Auto 6.2 % (2-11); Neutrophils Percent Auto 81.1 % (45-73); Platelet Count 262 X10*3/uL (160-400); Red Blood Count 4.27 X10*6/uL (4.20-5.50); Red Cell Distribution Width 12.2 % (11.0-16.0); White Blood Count 12.4 X10*3/uL (4.8-10.8)
[2020-09-06 05:40] LABS: Anion Gap 17 (12-20); Blood Urea Nitrogen 5 mg/dL (9-16); Calcium 8.5 mg/dL (8.4-10.2); Carbon Dioxide 19 mmol/L (22-29); Chloride 106 mmol/L (96-108); Creatinine Clr Calc Pharmacy 159.2; Estimated Glomerular Filt Rate > 60; Glucose Random 103 mg/dL (60-115); Potassium 3.9 mmol/L (3.3-5.1); Sodium 138 mmol/L (135-145)
[2020-09-06 07:43] VITALS: BP 132/74; PULSE 84; RESP 18; TEMP 36.7; O2SAT 95
[2020-09-06] MEDS: Famotidine/PF 20 MG/2 ML VIAL IVPUSH (08:00)
--- NOTE | 2020-09-06 09:12 | MHC.CM.PN ---
EMR REVIEWED, PT ADMITTED W/ LAP GASTRIC SLEEVE, CM MET W/PT WHO IS ALERT AND ORIENTED, PT REPORTS SHE LIVES W/HER PARTNER, IS INDEPENDENT WITH ALL CARE AT HOME AND USES A CPAP AT NIGHT, NO OTHER DME AND NO HOME SERVICES. PT REPORTS HER MOTHER WILL BE STAYING WITH HER TODAY WHILE HER PARTNER GOES TO WORK IN CASE SHE NEEDS ANYTHING. PT DENIES ANY CONCERNS IN CARING FOR SELF ONCE HOME. PT REPORTS SHE HAS COMPLET[place] [facility] [place]EN RE[place]. DISCHARGE PLAN: HOME SELF-CARE, PARTNER TO TRANSPORT PCP: JULISA OLIVARES HCP: WILI GARCIA (MOTHER) [phone] ALTERNATE: PING MCGREGOR (PARTNER) [phone]
--- NOTE | 2020-09-06 11:25 | MHC.CM.PN ---
PT DISCHARGED TODAY HOME SELF-CARE, PARTNER FOR TRANSPORT, FOLLOW-UP IN SURGEONS OFFICE.
--- NOTE | 2020-09-06 12:21 | HO.POSTANES ---
Post Anesthesia Evaluation Post Anesthesia Evaluation Vital Signs: Vital Signs Temp Pulse Resp BP Pulse Ox 09/06/20 07:43 98.0 F 84 18 132/74 95 09/06/20 04:37 88 116/72 09/06/20 03:26 97.7 F 90 18 143/86 H 95 Anesthesia: General Endotracheal-GETA Mental Status: Awake Pain Control: Satisfactory Nausea/Vomiting: None Hydration: Adequate Anesthesia-Related Issues: No Anes. Related Issues
== END 2020-09-06 10:12 | disposition home or self-care (01) | DRG 403 ==
LOC: HO.SSSA 10:53 → HO.S3 11:18
PROVIDERS: Nurse Practitioner; Physician Assistant; Admitting Provider Surgery; PCP Hospitalist; Visit Provider Surgery
PROC: 0DB64Z3 Excision of Stomach, Percutaneous Endoscopic Approach, Vertical (ICD-10-PCS; CPT 43845; principal; 2020-09-05 07:30)
DX: E66.01 Morbid (severe) obesity due to excess calories (principal); K76.0 Fatty (change of) liver, not elsewhere classified; F32.9 Major depressive disorder, single episode, unspecified; K80.20 Calculus of gallbladder without cholecystitis without obstruction; K66.0 Peritoneal adhesions (postprocedural) (postinfection); J45.909 Unspecified asthma, uncomplicated; K21.9 Gastro-esophageal reflux disease without esophagitis; Z68.41 Body mass index [BMI] 40.0-44.9, adult; I45.10 Unspecified right bundle-branch block; F41.9 Anxiety disorder, unspecified; G47.30 Sleep apnea, unspecified; Z20.822 Contact with and (suspected) exposure to COVID-19; Z88.5 Allergy status to narcotic agent; Z79.899 Other long term (current) drug therapy
CPT/HCPCS: 36415; 80048; 80053; 80061; 81025; 83036; 83525; 84443; 85014; 85018; 85025; 85610; 85730; 86140; 86850; 86900; 87635; 88304; 88307; 88342; 99024; A4649; J0131; J0690; J1100; J1170; J2250; J2405; J2765; J3010

== ENCOUNTER → 2020-09-13 07:46 | Outpatient (BNVA) | payer OTHER, SELFPAY | PROVIDERS: PCP Hospitalist; Visit Provider Surgery | DX: E66.9 Obesity, unspecified (principal); Z68.38 Body mass index [BMI] 38.0-38.9, adult | CPT/HCPCS: 99212 ==

== ENCOUNTER → 2020-10-11 08:26 | Outpatient (BNVA) | payer OTHER, SELFPAY | PROVIDERS: PCP Hospitalist; Visit Provider Surgery | DX: E66.9 Obesity, unspecified (principal); Z68.35 Body mass index [BMI] 35.0-35.9, adult | CPT/HCPCS: 99212 ==

== ENCOUNTER → 2020-11-10 08:29 | Outpatient (BNVA) | payer OTHER, SELFPAY | PROVIDERS: PCP Hospitalist; Visit Provider Surgery | DX: E66.9 Obesity, unspecified (principal); Z68.34 Body mass index [BMI] 34.0-34.9, adult; Z71.3 Dietary counseling and surveillance | CPT/HCPCS: 99212 ==

== ENCOUNTER → 2020-12-20 07:33 | Outpatient (BNVA) | payer OTHER, SELFPAY | PROVIDERS: PCP Hospitalist; Visit Provider Surgery ==

== ENCOUNTER → 2021-02-23 07:09 | Outpatient (BNVA) | payer OTHER, SELFPAY | PROVIDERS: PCP Hospitalist; Visit Provider Surgery ==

== ENCOUNTER 2021-03-13 09:29 | Emergency (ER) | payer OTHER, MEDICAID, SELFPAY ==
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
[2021-03-13 09:57] VITALS: BP 110/66; PULSE 69; RESP 18; TEMP 36.4; O2SAT 98; BMI 31.2
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
== END 2021-03-13 11:13 | disposition home or self-care (01) ==
PROVIDERS: Emergency Provider Emergency Medicine; PCP Hospitalist
DX: M54.5 Low back pain (principal); Z79.899 Other long term (current) drug therapy
CPT/HCPCS: 72100; 99283